=== PATIENT | female | born 1970 | race Two or more races ===

== ENCOUNTER → 2016-10-24 | Outpatient (CLI) | payer OTHER ==
[~2016-10-24] MED LIST: FLEXERIL10 MG PO; NAPROSYN375 MG PO
--- NOTE | ~2016-10-24 | US98 ---
[facility] A Service of [facility] RADIOLOGY TEXT RESULTS PATIENT: ERICA ATKINSON LOCATION: [facility] : 74 UNIT #: [id number] AGE: [address]: SHAHIDA WILLAMS APRN SEX: F ORDER DR: [id number] [facility] [address] [place], [place] [address] [id number] O MR#: [id number] Acc #: [id number] NAME: ERICA ATKINSON : 1970 SEX: F STUDY DATE/TIME: 10/24/2016 10:10 UNIT: [facility] ROOM: STUDY DESCRIPTION: US Pelvic Non-OB Complete Attending Physician: Jamaica Willams M.D. Ordering Physician: Jamaica Willams M.D. Primary Care Physician: Ruy Ryan M.D. MEDICAL IMAGING REPORT This report is preliminary unless electronic signature is present EXAM Transabdominal and transvaginal pelvic ultrasound, 10/24/2016 HISTORY 46-year-old female with complaints of pelvic pain for months. Patient states symptoms began last year. Heavy menstrual flow. G3, P2. Last menstrual period 10/14/2016. COMPARISON None FINDINGS Transabdominal imaging was performed for generalized visualization of pelvic structures. Transvaginal imaging was performed for more detailed evaluation of the adnexa. The uterus measures 7.5 x 4.5 x 5.1 cm. Endometrial bilayer thickness measures 8.0 mm, within normal limits. No focal endometrial or myometrial abnormality is identified. No fluid is demonstrated within the endometrial canal. The right ovary measures 1.8 x 2.8 x 1.8 cm and contains a benign appearing cyst measuring 1.8 x 1.3 x 1.3 cm. The right ovary demonstrates normal color and spectral Doppler flow. The left ovary measures 2.3 x 1.7 x 1.1 cm without cystic or solid abnormality. The left ovary demonstrates normal color and spectral Doppler flow. No pelvic free fluid is identified. IMPRESSION 1. Benign-appearing 1.8 cm right ovarian cyst. 2. Normal sonographic appearance of the uterus and endometrium. 3. Normal flow was documented to each ovary. [facility] A Service of [facility] RADIOLOGY TEXT RESULTS PATIENT: ERICA ATKINSON LOCATION: [facility] : 74 UNIT #: [id number] AGE: [address]: SHAHIDA WILLAMS APRN SEX: F ORDER DR: Dictated by... Ciara Vance M.D. THIS IS AN ELECTRONICALLY VERIFIED REPORT Ciara Vance M.D. at 10/25/2016 10:06 PM WALDEMAR/polina TD: 10/24/2016 12:31 JOB #: [id number] MEDICAL IMAGING REPORT COPY
--- NOTE | ~2016-10-24 | MY11 ---
[facility] A Service of [facility] RADIOLOGY TEXT RESULTS PATIENT: ERICA ATKINSON LOCATION: [facility] : 74 UNIT #: [id number] AGE: [address]: SHAHIDA WILLAMS APRN SEX: F ORDER DR: [id number] [facility] [address] [place], [place] [address] [id number] O MR#: [id number] Acc #: [id number] NAME: ERICA ATKINSON : 1970 SEX: F STUDY DATE/TIME: 10/24/2016 10:05 UNIT: [facility] ROOM: STUDY DESCRIPTION: MY Mammogram Screening Dig Joseph Attending Physician: Jamaica Willams M.D. Ordering Physician: Jamaica Willams M.D. Primary Care Physician: Ruy Ryan M.D. MEDICAL IMAGING REPORT This report is preliminary unless electronic signature is present REVISED REPORT SEE ADDENDUM EXAM Bilateral digital screening mammogram with CAD 10/24/2016 COMPARISON STUDIES 10/04/2015, 09/30/2012 HISTORY Breast cancer screening. 46-year-old asymptomatic female. No personal or family history of breast cancer. FINDINGS There are scattered fibroglandular densities. In the posterior third of the right breast best seen on CC projection there is a suspected developing focal asymmetry localizing approximately 6 o'clock. This most likely represents summation artifact. In the posterior third of the left breast localizing approximately the 4 o'clock position there is suspected developing focal asymmetry again most likely reflecting summation artifact but appearing new from comparisons. IMPRESSION Bilateral focal asymmetries. Further evaluation with spot compression CC and spot compression MLO views as well as full field ML views of both breasts is recommended, possibly followed by bilateral breast ultrasound. Patients over the age of 40 are entered into a reminder system with target due date for the next mammogram. A result letter will also be sent to the patient. BIRADS: 0 - Need additional imaging evaluation and/or prior mammograms for comparison [facility] A Service of [facility] RADIOLOGY TEXT RESULTS PATIENT: ERICA ATKINSON LOCATION: [facility] #: [id number] : 74 UNIT #: [id number] AGE: [address]: SHAHIDA WILLAMS APRN SEX: F ORDER DR: Dictated by... Rai Razo M.D. THIS IS AN ELECTRONICALLY VERIFIED REPORT Rai Razo M.D. at 10/27/2016 6:43 PM Luc TD: 10/24/2016 16:55 JOB #: [id number] ADDENDUM EXAM Bilateral screening mammogram 10/24/2016 ADDENDUM There is a separate asymmetry in the superior middle third of the right breast which could actually correlate to the finding on CC projection. This is in the right breast and should be evaluated with spot compression MLO view as well as already recommended full field ML view. BIRADS: 0 - Need additional imaging evaluation and/or prior mammograms for comparison Dictated by... Rai Razo M.D. THIS IS AN ELECTRONICALLY VERIFIED REPORT Rai Razo M.D. at 11/01/2016 6:16 AM Luc TD: 10/24/2016 17:02 JOB #: [id number] CC: Tonja/angelaision Please Delete MEDICAL IMAGING REPORT COPY
== END | disposition home or self-care (01) ==
LOC: CWCC 09:21
DX: Z12.31 Encounter for screening mammogram for malignant neoplasm of breast (principal); N64.89 Other specified disorders of breast; R10.2 Pelvic and perineal pain; N83.201 Unspecified ovarian cyst, right side
CPT/HCPCS: 76830; 76856; G0202

== ENCOUNTER → 2016-11-15 | Outpatient (CLI) | payer OTHER ==
--- NOTE | ~2016-11-15 | MY6 ---
[facility] A Service of [facility] RADIOLOGY TEXT RESULTS PATIENT: ERICA ATKINSON LOCATION: [facility] : 74 UNIT #: [id number] AGE: [address]: SHAHIDA WILLAMS APRN SEX: F ORDER DR: [id number] [address] [id number] [place], [place] [address] [id number] O MR#: [id number] Acc #: [id number] NAME: ERICA ATKINSON : 1970 SEX: F STUDY DATE/TIME: 11/15/2016 10:42 UNIT: [facility] ROOM: STUDY DESCRIPTION: MY Mammogram Dx Dig Joseph Attending Physician: Jamaica Willams M.D. Ordering Physician: Jamaica Willams M.D. Primary Care Physician: Ruy Ryan M.D. MEDICAL IMAGING REPORT This report is preliminary unless electronic signature is present EXAM Bilateral digital diagnostic mammogram. INDICATION Bilateral asymmetries on screening mammogram. PROCEDURE True lateral views of the right and left breast. Spot compression views of both breast in the CC and MLO projections. Images obtained on a digital mammography unit. COMPARISON STUDIES Screening mammogram, 10/24/2016. FINDINGS Heterogeneous fibroglandular density. There is no persistent mass seen. No suspicious calcification. There is some dense linear tissues seen in the upper right breast. Targeted ultrasound evaluation of the upper right breast shows no sonographic abnormality. IMPRESSION Benign bilateral diagnostic mammogram and right breast ultrasound. Recommend patient continue with yearly screening. Patients over the age of 40 are entered into a reminder system with target due date for the next mammogram. A result letter will also be sent to the patient. BIRADS: 2 Benign finding. [facility] A Service [facility] RADIOLOGY TEXT RESULTS PATIENT: ERICA ATKINSON LOCATION: [facility] : 74 UNIT #: [id number] AGE: [address]: SHAHIDA WILLAMS APRN SEX: F ORDER DR: Dictated by... Philippe Mukherjee M.D. THIS IS AN ELECTRONICALLY VERIFIED REPORT Philippe Mukherjee M.D. at 11/15/2016 4:50 PM EED/ankit TD: 11/15/2016 12:26 JOB #: [id number] MEDICAL IMAGING REPORT Page 1 of 1 COPY
--- NOTE | ~2016-11-15 | US24 ---
[facility] A Service of [facility] RADIOLOGY TEXT RESULTS PATIENT: ERICA ATKINSON LOCATION: [facility] : 74 UNIT #: [id number] AGE: [address]: SHAHIDA WILLAMS APRN SEX: F ORDER DR: [id number] [facility] [address], [place] [address] [id number] O MR#: [id number] Acc #: [id number] NAME: ERICA ATKINSON : 1970 SEX: F STUDY DATE/TIME: 11/15/2016 11:14 UNIT: [facility] ROOM: STUDY DESCRIPTION: US Breast Unilateral Attending Physician: Jamaica Willams M.D. Ordering Physician: Jamaica Willams M.D. Primary Care Physician: Ruy Ryan M.D. MEDICAL IMAGING REPORT This report is preliminary unless electronic signature is present EXAM Right breast ultrasound. INDICATION Asymmetries in the right breast on screening mammogram. PROCEDURE Targeted ultrasound of the upper right breast. COMPARISON STUDIES Concurrently performed bilateral diagnostic mammogram. FINDINGS/IMPRESSION Refer to separately dictated diagnostic mammogram for complete workup, findings, and recommendations. Patients over the age of 40 are entered into a reminder system with target due date for the next mammogram. A result letter will also be sent to the patient. BIRADS: 2 Benign finding. Dictated by... Philippe Mukherjee M.D. THIS IS AN ELECTRONICALLY VERIFIED REPORT Philippe Mukherjee M.D. at 11/15/2016 4:50 PM MARGARETHD/ankit TD: 11/15/2016 12:28 JOB #: [id number] [facility] A Service [facility] RADIOLOGY TEXT RESULTS PATIENT: ERICA ATKINSON LOCATION: [facility] : 74 UNIT #: [id number] AGE: [address]: SHAHIDA WILLAMS APRN SEX: F ORDER DR: MEDICAL IMAGING REPORT Page 1 of 1 COPY
== END | disposition home or self-care (01) ==
LOC: CMAM 09:24
DX: N64.89 Other specified disorders of breast (principal)
CPT/HCPCS: 76641; G0204